=== PATIENT | male | born 1990 | race Caucasian/White ===

== ENCOUNTER 2019-01-29 03:14 | Emergency (ER) | payer OTHER ==
[~2019-01-29] VITALS: Ht 182.9 cm; Wt 79.4 kg
[2019-01-29] MEDS ORDERED: NOHOMEMEDICATIONS (04:13)
[2019-01-29 04:21] VITALS: BP 103/76
== END 2019-01-29 04:20 | disposition designated cancer center or children's hospital (05) ==
LOC: ER 03:14
DX: T23.251A Burn of second degree of right palm, initial encounter (principal); T31.0 Burns involving less than 10% of body surface; F17.210 Nicotine dependence, cigarettes, uncomplicated